=== PATIENT | male | born 1960 | race Caucasian/White ===

== ENCOUNTER 2018-04-01 13:48 | Emergency (ER) | payer SELFPAY ==
[~2018-04-01] VITALS: Ht 172.7 cm; Wt 113.4 kg
[~2018-04-01 13:48] MED LIST: ALLO300T PO; ASPI-612 PO; GABA800T2 PO; INSU300I SQ; LISI1TAB5 PO; METO-239 PO; SITA100T PO; lisinopril; toujeo
--- NOTE | 2018-04-01 14:19 | PHYS DOC ---
Past History Past Medical History: Alcoholism, Diabetes, Hypertension, Hypotension, Lung Disease, Other Past Surgical History: Other Smoking: Cigarettes, Quit Greater Than 1 Year Alcohol Use: None Drug Use: None Adult General Chief Complaint Chief Complaint: MECHANICAL FALL HPI HPI 57-year-old male with a history of alcoholism presents after he fell down a couple of steps injuring his left lower leg. He was ambulatory at scene. He states he's just scraped his leg on the concrete. He denies hitting his head or losing consciousness. He states that there are no other injuries.[] Review of Systems Review of Systems Constitutional: Denies fever or chills [] Eyes: Denies change in visual acuity, redness, or eye pain [] HENT: Denies nasal congestion or sore throat [] Respiratory: Denies cough or shortness of breath [] Cardiovascular: No additional information not addressed in HPI [] GI: Denies abdominal pain, nausea, vomiting, bloody stools or diarrhea [] : Denies dysuria or hematuria [] Musculoskeletal: Denies back pain or joint pain [] Integument: Per history of present illness[] Neurologic: Denies headache, focal weakness or sensory changes [] Endocrine: Denies polyuria or polydipsia [] All other systems were reviewed and found to be within normal limits, except as documented in this note. Current Medications Current Medications Current Medications Medications (Trade) Dose Ordered Sig/Vijay Start Time Stop Time Status Last Admin Dose Admin Tetanus/ Diphtheria Toxoids Adsorbed (Tenivac Vial) 0.5 ml ONCE ONCE 04/01/18 14:15 04/01/18 14:16 UNV Allergies Allergies Allergies Coded Allergies Type Severity Reaction Last Updated Verified No Known Drug Allergies 01/15/16 No Physical Exam Physical Exam Constitutional: Well developed, well nourished, no acute distress, non-toxic appearance. [] HENT: Normocephalic, atraumatic, bilateral external ears normal, oropharynx moist, no oral exudates, nose normal. [] Eyes: PERRLA, EOMI, conjunctiva normal, no discharge. [] Neck: Normal range of motion, no tenderness, supple, no stridor. [] Cardiovascular:Heart rate regular rhythm, no murmur [] Lungs & Thorax: Bilateral breath sounds clear to auscultation [] Abdomen: Bowel sounds normal, soft, no tenderness, no masses, no pulsatile masses. [] Skin: Large abrasion left knee and howe. [] Back: No tenderness, no CVA tenderness. [] Extremities: Patient is able to his left leg is nontender to palpate[] Neurologic: Alert and oriented X 3, normal motor function, normal sensory function, no focal deficits noted noted an essential tremor. [] Psychologic: Affect normal, judgement normal, mood normal. [] EKG EKG [] Radiology/Procedures Radiology/Procedures [] Course & Med Decision Making Course & Med Decision Making Pertinent Labs and Imaging studies reviewed. (See chart for details) [] Dragon Disclaimer Dragon Disclaimer This electronic medical record was generated, in whole or in part, using a voice recognition dictation system. Departure Departure: Impression: Primary Impression: Abrasion of left leg Disposition: 01 HOME, SELF-CARE Condition: STABLE Referrals: VICTOR MANUEL LANGFORD MD (PCP) Patient Instructions: Abrasions Additional Instructions: Return to the emergency department with any new or concerning symptoms. Please keep your wound clean and dry Problem Qualifiers Primary Impression: Abrasion of left leg Encounter type: initial encounter Qualified Codes: S80.812A - Abrasion, left lower leg, initial encounter FAINA PETERS DO Apr 01, 2018 14:19
[2018-04-01 14:40] VITALS: BP 133/93
[2018-04-01] MEDS ORDERED: TETANUS AND DIPHTHERIA TOX/PF 0.5 ML VIAL. VAX IM ONE (14:45)
== END 2018-04-01 14:45 | disposition home or self-care (01) ==
LOC: ER 13:48
DX: S80.212A Abrasion, left knee, initial encounter (principal); S80.812A Abrasion, left lower leg, initial encounter; E11.9 Type 2 diabetes mellitus without complications; I10 Essential (primary) hypertension; F10.20 Alcohol dependence, uncomplicated; Z87.891 Personal history of nicotine dependence; Y90.9 Presence of alcohol in blood, level not specified; W10.8XXA Fall (on) (from) other stairs and steps, initial encounter; Y93.89 Activity, other specified; Y92.89 Other specified places as the place of occurrence of the external cause; Y99.8 Other external cause status
CPT/HCPCS: 90471; 90714; 99283-25

== ENCOUNTER 2020-10-10 20:58 | Emergency (ER) | payer SELFPAY ==
[~2020-10-10] VITALS: Ht 175.3 cm; Wt 108.6 kg
[~2020-10-10 20:58] MED LIST changes: -ASPI-612 PO; +ASPI-889 PO; -GABA800T2 PO; +GABA800T5 PO; +LISI1TAB37 PO; -LISI1TAB5 PO
--- NOTE | 2020-10-10 21:04 | PHYS DOC ---
Past History Past Medical History: Alcoholism, Anxiety, COPD, Diabetes, High Cholesterol, Hypertension, Hypothyroid, Hypotension, Lung Disease, Other Past Surgical History: No Surgical History Smoking: Cigarettes, Quit Greater Than 1 Year Alcohol Use: Occasionally Drug Use: None Adult General HPI HPI Patient is a 59-year-old male who presents via EMS for a fall. Fall was 6 days ago. Reports falling forward onto outstretched bilateral hands and then landing on his left hip. States he has been at home and taking previously prescribed gabapentin and ibuprofen for pain but that is not helped alleviate his symptoms. Reports focal tenderness to midline spinous process approximately L3 area. Reports it is difficult walking with pain radiating down his left foot. No recent illnesses, no changes in medication, no fever greater than 100.4, denies any illicit drug use or chronic immunosuppression with steroid use Review of Systems Review of Systems Fourteen body systems of review of systems have been reviewed. See HPI for pertinent positives and negative responses, other saldaña all other systems are negative, non-pertinent or non-contributory Allergies Allergies Allergies Coded Allergies Type Severity Reaction Last Updated Verified No Known Drug Allergies 01/15/16 No Physical Exam Physical Exam Constitutional: Well developed, well nourished, no acute distress, non-toxic appearance. HENT: Normocephalic, atraumatic, bilateral external ears normal, oropharynx dry with poor dentition, no oral exudates, nose normal. Smacking lips Eyes: PERRLA, EOMI, conjunctiva normal, no discharge. Neck: Normal range of motion, no tenderness, supple, no stridor. Cardiovascular: Heart rate regular, sinus rhythm, no murmurs rubs or gallops Lungs & Thorax: Bilateral breath sounds clear to auscultation Abdomen: Bowel sounds normal, soft, no tenderness, no masses, no pulsatile masses. Nonsurgical abdomen, no peritoneal signs. No bladder or bowel incontinence Skin: Warm, dry, no erythema, no rash. Patient has ecchymosis in numerous parts of body mostly on extremities and x1 area over the left flank in various stages of recovery Back: No CVA tenderness but does have bruising present to left flank. Patient has point tenderness over L3 spinous process. Negative straight leg raise bilaterally.. Extremities: No tenderness, no cyanosis, no clubbing, ROM intact, no edema. Negative [place] ankle and foot rules to left lower extremity Neurologic: Alert and oriented X 3, bilateral lower extremity patellar and Achilles reflex symmetric 2+, negative Babinski bilaterally, no saddle anesthesia normal motor & sensory function, no focal deficits noted. Psychologic: Odd affect, judgement normal, nonrhythmic generalized body movements concerning for active methamphetamine use Current Patient Data Vital Signs Vital Signs Date Time Temp Pulse Resp B/P (MAP) Pulse Ox O2 Delivery O2 Flow Rate FiO2 10/10/20 21:00 100.2 99 24 131/79 (96) 97 Room Air EKG EKG [] Radiology/Procedures Radiology/Procedures PROCEDURE: PELVIS Exam: Pelvis 1 view INDICATION: Left hip pain TECHNIQUE: Frontal view of the pelvis Comparisons: None FINDINGS: Bone mineralization is normal. No acute or healed fractures. Soft tissues are unremarkable. Joint spaces are well-maintained. IMPRESSION: No acute osseous abnormality. Electronically signed by: Shar Mota MD (10/10/2020 10:33 PM) [facility] //////////////////////////////// PROCEDURE: CT LUMBAR SPINE WO CONTRAST Exam: CT of lumbar spine without contrast INDICATION: L2 tenderness TECHNIQUE: Sequential axial images through the lumbar spine obtained without IV contrast. Sagittal and coronal reformatted images were reconstructed from the axial data and reviewed. Comparisons: None FINDINGS: Vertebral body heights are well-maintained. Grade 1 retrolisthesis of L2 on L3 and L3 on L4. Fracture through the lumbar spine is not identified. Multilevel spondylotic change in the lumbar spine with degenerative disc disease diffusely present. There is a central disc protrusion at L2-L3 extends inferiorly on the right and likely compresses the descending right L3 nerve. Visualized paraspinal soft tissues are unremarkable. IMPRESSION: 1. Negative CT lumbar spine for acute traumatic injury. 2. Right paracentral disc protrusion at L2-L3 which extends inferiorly down the spinal canal likely compressing the descending right L3 nerve. Correlation with MRI of the lumbar spine is recommended. Heart Score C/O Chest Pain: No Risk Factors: Risk Factors: DM, Current or recent (<one month) smoker, HTN, HLP, family history of CAD, obesity. Risk Scores: Risk Factors: DM, Current or recent (<one month) smoker, HTN, HLP, family hist ory of CAD, obesity. Course & Med Decision Making Course & Med Decision Making Hemodynamically stable patient with history concerning for back pain status post fall 6 days ago. He does have a low-grade fever, I suspect IV drug abuse given history of known illicit drug abuse and fact that he appears under the influence currently. PE concerning for point tenderness over L3 spinous process and focal tenderness over left hip without any visual or palpable abnormalities. Radiograph of pelvis and subsequent CT imaging of lumbar area given red flags for back pain were nonconcerning Advised continued supportive care practices such as stretching and Tylenol for pain as needed and close outpatient follow-up. Supportive care and exercises advised. Strict return precautions were discussed with good understanding by patient, all questions and concerns addressed prior to ER departure At time of discharge when [facility] was called for patient, he reports that he could not walk. Patient was reexamined. Patient reported pain to sole of heel without any other abnormalities found, I reiterated there is no need for further ER diagnostic work-up Patient was ambulatory and after extensive conversation, ambulated from ER outside to [facility] where he left Dragon Disclaimer Dragon Disclaimer This electronic medical record was generated, in whole or in part, using a voice recognition dictation system. Departure Departure: Impression: Primary Impression: Low back pain Additional Impressions: Left hip pain History of recent fall Disposition: 01 DC HOME SELF CARE/HOMELESS Condition: STABLE Referrals: VICTOR MANUEL LANGFORD MD (PCP) Patient Instructions: Back Exercises, Back Pain, Adult Additional Instructions: You were evaluated in the Emergency Department today for back pain. Your evaluation suggests no acute abnormalities which require further intervention at this time. Your pain is most likely due to to a musculoskeletal cause that should improve with supportive care. I reviewed your imaging findings today. Please call your primary care physician to follow-up on this in outpatient setting. As discussed, if symptoms continue an MRI of the back is recommended - Move around as tolerated but avoiding heavy lifting. ``Bed rest is not recommended nor is it the best treatment for low back pain. - Medications will help control your discomfort: - -Ibuprofen (800 mg every 8 hours for pain) with food. - -Tylenol - Do not drink alcohol, drive a car, operate machinery, or get up on ladders or heights when taking any prescribed pain medications. - Do not drive home if you received prescribed pain medications here in the ED. Return to the ED immediately if you develop any of the following problems: - Leaking urine or difficulty urinating; - Inability to control your bowels; - New numbness or weakness in your legs or numbness between your legs; - Inability to walk - Fever Problem Qualifiers GIA ALMANZAR DO Oct 10, 2020 21:04
[2020-10-10] MEDS ORDERED: ACETAMINOPHEN 325 MG TABLET PO ONE (21:30)
--- NOTE | 2020-10-10 22:28 | RAD ---
Exam: CT of lumbar spine without contrast INDICATION: L2 tenderness TECHNIQUE: Sequential axial images through the lumbar spine obtained without IV contrast. Sagittal an d coronal reformatted images were reconstructed from the axial data and reviewed. Comparisons: None FINDINGS: Vertebral body heights are well-maintained. Grade 1 retrolisthesis of L2 on L3 and L3 on L4. Fracture through the lumbar spine is not identified. Multilevel spondylotic change in the lumbar spine with degenerative disc disease diffusely present. There is a central disc protrusion at L2-L3 extends inferiorly on the right and likely compresses the descending right L3 nerve. Visualized paraspinal soft tissues are unremarkable. IMPRESSION: 1. Negative CT lumbar spine for acute traumatic injury. 2. Right paracentral disc protrusion at L2-L3 which extends inferiorly down the spinal canal likely compressing the descending right L3 nerve. Correlation with MRI of the lumbar spine is recommended. Exposure: One or more of the following in the visualized dose reduction techniques were utilized for this examination: 1. Automated exposure control 2. Adjustment of the MA and/or KV according to patient size 3. Use of iterative of reconstructive technique Electronically signed by: Shar Mota MD (10/10/2020 10:26 PM) [facility]
--- NOTE | 2020-10-10 22:36 | RAD ---
Exam: Pelvis 1 view INDICATION: Left hip pain TECHNIQUE: Frontal view of the pelvis Comparisons: None FINDINGS: Bone mineralization is normal. No acute or healed fractures. Soft tissues are unremarkable. Joint spa brian are well-maintained. IMPRESSION: No acute osseous abnormality. Electronically signed by: Shar Mota MD (10/10/2020 10:33 PM) [facility]
[2020-10-11 00:30] VITALS: BP 124/79
== END 2020-10-11 00:50 | disposition home or self-care (01) ==
LOC: ER 20:58
DX: G89.11 Acute pain due to trauma (principal); M54.5 Low back pain; M25.552 Pain in left hip; F41.9 Anxiety disorder, unspecified; J44.9 Chronic obstructive pulmonary disease, unspecified; E11.9 Type 2 diabetes mellitus without complications; E78.00 Pure hypercholesterolemia, unspecified; I10 Essential (primary) hypertension; I95.9 Hypotension, unspecified; E03.9 Hypothyroidism, unspecified; F17.210 Nicotine dependence, cigarettes, uncomplicated; J98.4 Other disorders of lung; W18.39XA Other fall on same level, initial encounter; Y93.89 Activity, other specified; Y92.89 Other specified places as the place of occurrence of the external cause; Y99.8 Other external cause status
CPT/HCPCS: 72131; 72170; 99284

== ENCOUNTER 2020-10-21 14:14 | Inpatient (IN) | payer MEDICARE, OTHER ==
[~2020-10-21] VITALS: Ht 172.7 cm; Wt 105.7 kg
--- NOTE | 2020-10-21 14:38 | PHYS DOC ---
Past History Past Medical History: COPD, Diabetes, Hypertension, Other Additional Past Medical Histor: GOUT, NEUROPATHY Past Surgical History: No Surgical History Smoking: Cigarettes, Quit Greater Than 1 Year Alcohol Use: None Drug Use: None General Adult HPI: HPI: 59-year-old male past medical history of hypertension, daily alcohol abuse, COPD and diabetes, presents the ED with complaints of difficulty walking described as "balance problems, for years." stating he went to [place] yesterday and drank some alcoholic beverages and fell afterwards when at home going down split stairs to his bedroom. Pt denies LOC, on no AC but states he fell forward and hit the top of his nose. Reports he did not call for ambulance then because he had difficulties getting to his bedroom and wasn't at home. was home today and told him he needed to come to the hospital after he fell again today (no LOC). Reports his last alcoholic beverage was at [employer] yesterday. I asked if pt has ever been on any thiamine medication or if pt has been told he needs to take a vitamin. Pt states "I take one a day over 50, every day." Pt drinks half a fifth daily "for years." Denies any h/o CVA, TIA. No associated saddle anesthesia, urinary or bowel retention or incontinence, midline back pain, chest pain, dyspnea, hemoptysis or syncope. Reports tetanus has been updated in past 10 years. Review of Systems: Review of Systems: Constitutional: Denies fever or chills Eyes: Denies change in visual acuity HENT: Denies nasal congestion or sore throat Respiratory: Denies cough or shortness of breath Cardiovascular: Denies chest pain or edema GI: Denies abdominal pain, nausea, vomiting, bloody stools or diarrhea : Denies dysuria or hematuria Musculoskeletal: Denies back pain or joint pain Integument: Denies rash or diaphoresis Neurologic: Denies headache, midline neck pain, focal weakness or sensory changes Endocrine: Denies polyuria or polydipsia Lymphatic: Denies swollen glands Psychiatric: Denies depression or anxiety Allergies: Allergies: Allergies Coded Allergies Type Severity Reaction Last Updated Verified No Known Drug Allergies 01/15/16 No Physical Exam: PE: Constitutional: Well developed, well nourished, no acute distress, non-toxic appearance. HENT: Normocephalic, atraumatic, no hematoma, scab over proximal nasal bridge, no septal hematoma, very dry mucous membranes no oral bleeding/loose teeth/trauma Eyes: PERRLA, EOMI, mucous sounds bilaterally, no discharge. Neck: Normal range of motion, supple, Nexus C-spine criteria are negative: T here is no post midline tenderness, the patient is not intoxicated, there is a normal level of alertness, there are no focal neurologic deficits and there are no distracting injuries Cardiovascular: S1/2 present, regular rhythm Lungs & Thorax: Speaking in full sentences, bilateral equal chest rise, no tachypnea or increased work of breathing Abdomen: soft, no tenderness, Skin: Warm, dry, no erythema, no rash. [] Back: No midline tenderness or step-offs, no CVA tenderness. [] Extremities: No tenderness, no cyanosis, no lower extremity edema, ataxia in all 4 extremities, hemosiderin deposition both legs Neurologic: Alert and oriented X 3, normal motor function, normal sensory function, no focal deficits noted. [] Psychologic: Affect normal, judgement normal, mood normal. [] Current Patient Data: Labs: Laboratory Tests Test 10/21/20 14:25 Glucose (Fingerstick) 134 mg/dL (70-99) H EKG: EKG: Sinus rhythm 87 bpm, no axis deviation, normal intervals, no T wave inversion, no ST elevations or ST depressions Radiology/Procedures: Radiology/Procedures: [] IMAGING REPORT Signed PATIENT: GINGER ALARCON ACCOUNT: [id number] : 1960 LOCATION: ER AGE: 59 SEX: M EXAM STATUS: REG ER ORD. PHYSICIAN: FRANCY JACOBSON DO REASON: fall PROCEDURE: PORTABLE CHEST 1V XR CHEST 1V History: Reason: fall / Spl. Instructions: / History: . Pain Comparison: August 21, 2016 Findings: Patchy left basilar opacity. No pleural effusion. No pneumothorax. Advanced right and moderate left glenohumeral DJD. Impression: 1. Patchy bibasilar opacity, may represent atelectasis or developing consolida tion. If persistent clinical concern, recommend follow-up. Electronically signed by: Pj Gant DO (10/21/2020 2:56 PM) [id number] DICTATED AND SIGNED BY: PJ GANT DO DATE: 10/21/20 1453 CC: FRANCY JACOBSON DO; VICTOR MANUEL LANGFORD MD ~MTH0 0 IMAGING REPORT Signed PATIENT: GINGER ALARCON ACCOUNT: [id number] : 1960 LOCATION: ER AGE: 59 SEX: M EXAM STATUS: REG ER ORD. PHYSICIAN: FRANCY JACOBSON DO REASON: fall with blunt head trauma PROCEDURE: CT HEAD AND CERVICAL SPINE WO CT brain without contrast, CT C-spine without contrast. HISTORY: Fall with blunt head trauma CT brain CT scan of the brain was done without contrast. Sinuses are clear. A skull fracture is not identified. There is no intracranial hemorrhage or subdural hematoma. There is no mass or shift of the midline. Ventricles are normal in size. IMPRESSION: 1. No intracranial hemorrhage or acute finding noted. End impression CT cervical spine Axial CT images were obtained through the cervical spine. Thyroid is homogeneous. There are degenerative changes in the cervical spine. There is motion artifact. There is degenerative disc disease with disc space narrowing at C5-6 and C6-7 and spurring. There is subtle lucency through C2 which is probably artifact from motion but a repeat study with an additional imaging through the upper cervical spine would be of benefit to exclude subtle fracture. Definitive fracture not identified. There is mild narrowing of the spinal canal, the canal measures 8 mm at C5-6 and 1 cm at C6-7. IMPRESSION: 1. Motion artifact limits the study. Additional images may be of benefit to exclude a subtle fracture. 2. Degenerative disc disease at C5-6 and C6-7. PQRS Compliance Statement: One or more of the following individualized dose reduction techniques were utilized for this examination: 1. Automated exposure control 2. Adjustment of the mA and/or kV according to patient size 3. Use of iterative reconstruction technique Electronically signed by: Alexander Hardin MD (10/21/2020 3:14 PM) [id number] DICTATED AND SIGNED BY: ALEXANDER HARDIN MD DATE: 10/21/20 1503 CC: FRANCY JACOBSON DO; VICTOR MANUEL LANGFORD MD ~MTH0 0 Heart Score: C/O Chest Pain: No Risk Factors: Risk Factors: DM, Current or recent (<one month) smoker, HTN, HLP, family history of CAD, obesity. Risk Scores: Score 0 - 3: 2.5% MACE over next 6 weeks - Discharge Home Score 4 - 6: 20.3% MACE over next 6 weeks - Admit for Clinical Observation Score 7 - 10: 72.7% MACE over next 6 weeks - Early Invasive Strategies Course & Med Decision Making: Course & Med Decision Making Pertinent Labs and Imaging studies reviewed. (See chart for details) COVID-19 CRITERIA: The patient was evaluated during the global COVID-19 pandemic, and that diagnosis was suspected/considered upon their initial presentation. Their evaluation, treatment and testing was consistent with current guidelines for patients who present with complaints or symptoms that may be related to COVID-19. Concern for sepsis 2/2 cap (covid pending) vs malignancy given leukomoid reacti on, in the setting of suspected thiamine deficiency with neuropathy, ataxia and weakness. Patient is a fall risk. Has no extremity tremors, hallucinations, nausea or vomiting or tongue fasciculations. Antibiotics and IV fluids including thiamine started in ED. Will admit for further medical management. Patient stable at time of admission and agrees with this plan. I have spoken with the patient and/or caregivers. I have explained the patient's condition, diagnosis and treatment plan based on the information available to me at this time. I have answered the patient's and/or caregivers questions and answered any concerns. The patient and/or caregivers have as good an understanding of the patient's diagnosis, condition and treatment plan as can be expected at this point. The patient has been stabilized within the capability of the emergency department. The patient will be transported for further care and management or will be moved to an observation or inpatient service. I have communicated with the staff or medical practitioner taking over this patient's care. Dragon Disclaimer: Dragon Disclaimer: This electronic medical record was generated, in whole or in part, using a voice recognition dictation system. Departure Departure: Impression: Primary Impression: Sepsis Additional Impressions: Pneumonia Person under investigation for COVID-19 Thiamine deficiency neuropathy Disposition: ADMITTED INPT THIS HOSP Admitting Physician: Mohinder Orantes Condition: STABLE Referrals: VICTOR MANUEL LANGFORD MD (PCP) FRANCY JACOBSON DO Oct 21, 2020 14:38
--- NOTE | 2020-10-21 14:51 | EKG ---
[address] [address] Test Date: 2020-10-21 Test Time: 14:38:14 Pat Name: GINGER ALARCON Department: Room: Gender: M [employer] Operator: : 1960 Requested By: FRANCY JACOBSON Order Number: [id number] Reading MD: Measurements Intervals [place] Rate: 87 P: -67 OK: 142 QRS: 49 QRSD: 86 T: 60 QT: 364 QTc: 444 Interpretive Statements SINUS RHYTHM LOW LIMB LEAD VOLTAGE NO SPECIFIC ECG ABNORMALITIES RI6.02 No previous ECG available for comparison
--- NOTE | 2020-10-21 14:58 | RAD ---
XR CHEST 1V History: Reason: fall / Spl. Instructions: / History: . Pain Comparison: August 21, 2016 Findings: Patchy left basilar opacity. No pleural effusion. No pneumothorax. Advanced right and moderate left g lenohumeral DJD. Impression: 1. Patchy bibasilar opacity, may represent atelectasis or developing consolidation. If persistent cl inical concern, recommend follow-up. Electronically signed by: Pj Gant DO (10/21/2020 2:56 PM) [id number]
[2020-10-21] MEDS ORDERED: THIAMINE INJ 100 MG in IV NORMAL SALINE 50ML 50 ML IV ONE (15:00)
[2020-10-21] MEDS ORDERED: MVI, ADULT NO.4 WITH VIT K 10 ML, FOLIC ACID INJ 1 MG, THIAMINE INJ 100 MG in IV NORMAL... IV ONE (15:00)
[2020-10-21 15:08] LABS: BASO # 0.1 x10^3/uL (0.0-0.2); BASO % 0 % (0-3); CALCIUM 8.7 mg/dL (8.5-10.1); CREATININE 2.9 mg/dL (0.7-1.3); EOS % 0 % (0-3); GFR 22.3; HEMATOCRIT 39.3 % (39.0-53.0); HEMOGLOBIN 12.7 g/dL (13.0-17.5); LYMPH # 0.9 x10^3/uL (1.0-4.8); LYMPH % 3 % (24-48); MEAN CORPUSCULAR HEMOGLOBIN 33 pg (25-35); MEAN CORPUSCULAR HGB CONC 32 g/dL (31-37); MEAN CORPUSCULAR VOLUME 101 fL (79-100); MONO # 0.8 x10^3/uL (0.0-1.1); MONO % 2 % (0-9); NEUT # 34.6 x10^3uL (1.8-7.7); NEUT % 95 % (31-73); PLATELET COUNT 218 x10^3/uL (140-400); POTASSIUM 4.9 mmol/L (3.5-5.1); RED CELL DISTRIBUTION WIDTH 13.8 % (11.5-14.5); WHITE BLOOD COUNT 36.4 x10^3/uL (4.0-11.0)
[2020-10-21] MEDS ORDERED: AZITHROMYCIN 500 MG in IV NORMAL SALINE 250ML 250 ML IV ONE (15:15)
--- NOTE | 2020-10-21 15:17 | RAD ---
CT brain without contrast, CT C-spine without contrast. HISTORY: Fall with blunt head trauma CT brain CT scan of the brain was done without contrast. Sinuses are clear. A skull fracture is not identified . There is no intracranial hemorrhage or subdural hematoma. There is no mass or shift of the midline. Ventricles are normal in size. IMPRESSION: 1. No intracranial hemorrhage or acute finding noted. End impression CT cervical spine Axial CT images were obtained through the cervical spine. Thyroid is homogeneous. There are degenerat royce changes in the cervical spine. There is motion artifact. There is degenerative disc disease with disc space narrowing at C5-6 and C6-7 and spurring. There is subtle lucency through C2 which is proba lucian artifact from motion but a repeat study with an additional imaging through the upper cervical spi ne would be of benefit to exclude subtle fracture. Definitive fracture not identified. There is mild narrowing of the spinal canal, the canal measures 8 mm at C5-6 and 1 cm at C6-7. IMPRESSION: 1. Motion artifact limits the study. Additional images may be of benefit to exclude a subtle fracture . 2. Degenerative disc disease at C5-6 and C6-7. PQRS Compliance Statement: One or more of the following individualized dose reduction techniques were utilized for this examinat ion: 1. Automated exposure control 2. Adjustment of the mA and/or kV according to patient size 3. Use of iterative reconstruction technique Electronically signed by: Alexander Hardin MD (10/21/2020 3:14 PM) [id number]
[2020-10-21 15:21] LABS: ALBUMIN 2.8 g/dL (3.4-5.0); ALBUMIN/GLOBULIN RATIO 0.8 (1.0-1.7); MAGNESIUM 1.5 mg/dL (1.8-2.4); TOTAL BILIRUBIN 0.6 mg/dL (0.2-1.0); TOTAL PROTEIN 6.2 g/dL (6.4-8.2)
[2020-10-21] MEDS ORDERED: IV NORMAL SALINE 1,000ML 1,000 ML IV ONE ×4 (15:30→23:30)
[2020-10-21] MEDS ORDERED: IV NORMAL SALINE 250ML 250 ML ONE (15:34)
[2020-10-21] MEDS ORDERED: cefTRIAXone SODIUM 1 GM VIAL ONE (15:34)
[2020-10-21] MEDS ORDERED: AZITHROMYCIN 500 MG VIAL. IV ONE (15:34)
[2020-10-21] MEDS ORDERED: IV NORMAL SALINE 50ML 50 ML ONE (15:34)
[2020-10-21] MEDS ORDERED: MAGNESIUM SULFATE 2GM 50 ML IV ONE (15:45)
[2020-10-21 19:11] LABS: BARBITURATES NEG (NEG); BENZODIAZEPINES NEG (NEG); CANNABINOIDS NEG (NEG); COCAINE NEG (NEG); METHADONE NEG (NEG); OPIATES NEG (NEG); PHENCYCLIDINE NEG (NEG)
[2020-10-21 19:12] LABS: AMPHETAMINE/METHAMPHETAMINE NEG (NEG)
[2020-10-21 19:14] LABS: BACTERIA,URINE MANY /HPF (0-FEW); BILIRUBIN,URINE NEG (NEG); CLARITY,URINE TURBID; COLOR,URINE AMBER; GLUCOSE,URINE NEG (NEG); NITRITE,URINE NEG (NEG); RBC,URINE OCC /HPF (0-2); SQUAMOUS EPITHELIAL CELL,UR FEW /LPF; UROBILINOGEN,URINE 0.2 mg/dL (0.2 mg/dL); WBC,URINE 20-40 /HPF (0-4)
[2020-10-21 19:15] LABS: AMORPHOUS SEDIMENT,UR PRESENT /HPF
--- NOTE | 2020-10-21 19:54 | NUR ---
The patient, GINGER ALARCON, 59 y/o, M admitted by JAGRUTI BRUNO MD, was given written information regarding hospital policies, unit procedures and contact persons. Valuables were checked and logged. Call light in place. Will continue to monitor.
[2020-10-21 20:00] LABS: % BANDS 17 % (0-9); % LYMPHS 2 % (24-48); % MONOS 1 % (0-10); % SEGS 80 % (35-66)
[2020-10-21 20:01] LABS: PLT ESTIMATE ADEQUATE (ADEQUATE); TOXIC GRANULATION SLIGHT
[2020-10-21 20:42] VITALS: BP 74/55
[2020-10-21 23:10] VITALS: BP 75/55
[2020-10-22] MEDS: IV NORMAL SALINE 1,000ML 1,000 ML IV SCH ×3 (00:30→20:18)
[2020-10-22] MEDS ORDERED: UMEC1DIS IH (00:56)
[2020-10-22] MEDS ORDERED: TEMA15CA PO (00:56)
[2020-10-22] MEDS ORDERED: PREG100C PO (00:56)
[2020-10-22] MEDS ORDERED: DESV50TA PO (00:56)
[2020-10-22] MEDS ORDERED: GABA-587 PO (00:56)
[2020-10-22] MEDS ORDERED: LEVO75TA5 PO (00:56)
[2020-10-22] MEDS ORDERED: INSU100I13 SQ (00:56)
[2020-10-22] MEDS ORDERED: ATOR20TA58 PO (00:56)
[2020-10-22] MEDS ORDERED: AMIT150T PO (00:56)
--- NOTE | 2020-10-22 01:34 | NUR ---
CALLED DR TO CONTINUE MEDICATIONS THIS EVENING. DR CONTINUED LEVOTHYROXINE ONLY FOR PTS. ORDERS RECEIVED FOR 1000ML BOLUS NS ALSO 1000 NS LD973ID/HR AFTER THE BOLUS. PTS HAS BEEN HYPOTENSIVE SENSE ADMISSION.
--- NOTE | 2020-10-22 01:36 | NUR ---
PTS BP AFTER BOLUS 131/60
[2020-10-22 05:42] VITALS: BP 112/64
[2020-10-22] MEDS ORDERED: LEVOTHYROXINE 75 MCG TABLET PO SCH (07:30)
[2020-10-22 07:52] VITALS: BP 107/63
--- NOTE | 2020-10-22 08:45 | HP ---
ADMIT DATE: 10/21/2020 ATTENDING PHYSICIAN: Dr. Bruno. CHIEF COMPLAINT: Inability to walk. HISTORY OF PRESENT ILLNESS: The patient is a 59-year-old gentleman who drinks every day. He is clearly an alcoholic. He could not walk. He had fallen at home, fell down the stairs, no apparent bony injuries. He has significant neuropathy. The was home and told him he needed to come to the hospital after he fell again. He is dehydrated. Creatinine is 2.9 mg/dL. Clinically, he is nonambulatory, very weak. He has some tremulousness. Last drink was the day before. 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 PAST MEDICAL HISTORY: Significant for COPD, diabetes type 2, hypertension, and gout. He also has significant neuropathy due to a combination of mainly alcohol and probably diabetic too. ALLERGIES: He has no known drug allergies. CURRENT MEDICATIONS: Reviewed. He was taking Neurontin 400 mg p.o. t.i.d., amitriptyline 150 mg at bedtime, aspirin, Lipitor, Pristiq, Neurontin, insulin regular and Lantus, Synthroid, lisinopril, hydrochlorothiazide, metoprolol, Lyrica, Januvia, temazepam at bedtime and Breo Ellipta. FAMILY HISTORY: Mom of complications of lung cancer at age 54. Father of kidney failure at age 71, compliance is an issue. SOCIAL HISTORY: He quit smoking a year ago. He continues to drink regularly. The patient is disabled due to COPD. REVIEW OF SYSTEMS: Significant for the frequent falls, neuropathy. He was able to get out [employer] for their happy hour. He drinks whiskey on a regular basis. His liquor of choice is [employer], he drinks approximately fifth a day. He denied any previous history of seizures. There is a history of methamphetamine abuse, vasovagal sympathy, thiamine deficiency. All other systems reviewed and turned to be negative. PHYSICAL EXAMINATION: GENERAL: When I saw him, he was pretty sober. He was alert and gave a succinct history. His memory was actually quite good. VITAL SIGNS: Initial vital signs by the time I saw him, blood pressure is improved to 107/63, pulse is 92 and regular, temperature 98.8 degrees Fahrenheit, oxygen saturation 93% on room air. HEENT: Head is without trauma. Pupils are reactive. Sclerae nonicteric. Oropharynx clear. NECK: Supple, no bruits identified. LUNGS: Good breath sounds, minimal wheezing. CARDIOVASCULAR: Showed regular heart tones. No gallops. ABDOMEN: Soft, obese, protuberant. No organomegaly. Bowel sounds are hypoactive. EXTREMITIES: Showed trace edema. NEUROLOGIC: Fairly intact. Speech is fluent. He is nonambulatory at this time. SKIN: Warm and dry. PERTINENT LABORATORY AND X-RAY STUDIES: The obligatory CT of the head showed no acute strokes or bleeds. Initial hemoglobin was 12.7 g/dL, white count 36,400, creatinine is 2.9 mg percent, BUN 29, potassium 4.9 mEq. Nonfasting blood sugar 132. Cardiac enzymes negative. BNP is 1200. Transaminases were quite normal. Chest x-ray showed patchy bibasilar opacity representing atelectasis. He did not appear toxic or infected. He was afebrile. ASSESSMENT: 1. A 59-year-old gentleman with inability to walk, balance issues. He has significant alcoholic neuropathy. 2. Chronic alcoholism, ongoing. He drinks daily. 3. Chronic obstructive pulmonary disease. 4. Disability. 5. Dehydration. 6. Chronic kidney disease, stage 5. 7. Type 2 diabetes. PLAN: 1. Admit to the inpatient unit. 2. IV hydration. 3. Serial CBCs and chemistry panel. 4. I believe the elevation of white count is a leukemoid reaction. He does not appear septic at this time. 5. Physical therapy consultation. 6. Home meds, some were restarted. 7. We will monitor for signs of alcohol withdrawal. JAGRUTI BRUNO MD DR: SELVIN/andrew JOB#: [id number] / [id number] VICTOR MANUEL Piedra MD
[2020-10-22] MEDS: GABAPENTIN 400 MG CAPSULE. PO SCH ×3 (09:02→20:18)
[2020-10-22 10:13] LABS: CALCIUM 7.9 mg/dL (8.5-10.1); GFR 21.5; POTASSIUM 4.9 mmol/L (3.5-5.1)
[2020-10-22 10:14] LABS: BASO # 0.1 x10^3/uL (0.0-0.2); BASO % 0 % (0-3); EOS # 0.1 x10^3/uL (0.0-0.7); EOS % 0 % (0-3); HEMATOCRIT 36.3 % (39.0-53.0); HEMOGLOBIN 11.5 g/dL (13.0-17.5); LYMPH # 0.8 x10^3/uL (1.0-4.8); LYMPH % 3 % (24-48); MEAN CORPUSCULAR HEMOGLOBIN 33 pg (25-35); MEAN CORPUSCULAR HGB CONC 32 g/dL (31-37); MEAN CORPUSCULAR VOLUME 103 fL (79-100); MONO # 0.5 x10^3/uL (0.0-1.1); MONO % 2 % (0-9); NEUT # 22.7 x10^3uL (1.8-7.7); NEUT % 94 % (31-73); PLATELET COUNT 110 x10^3/uL (140-400); RED BLOOD COUNT 3.51 x10^6/uL (4.30-5.70); RED CELL DISTRIBUTION WIDTH 14.3 % (11.5-14.5); WHITE BLOOD COUNT 24.1 x10^3/uL (4.0-11.0)
[2020-10-22 11:57] VITALS: BP 134/78
[2020-10-22 15:03] VITALS: BP 119/72
--- NOTE | 2020-10-22 17:10 | NUR ---
SHIFT NOTE Pt up to chair a couple times today. This RN educated on frequent movement and cough/deep breathe exercises due to pts slight wheeze. Order for incentive spirometry and pt educated on use. Will continue to monitor. CC, RN
[2020-10-22 20:12] VITALS: BP 92/67
--- NOTE | 2020-10-22 21:08 | NUR ---
Nursing note: Spoke to MD regarding CIWA scores and medications, no new orders at this time d/t soft BP. Bed padded, pt on tele, will continue to monitor.
[2020-10-23 00:03] VITALS: BP 134/61
[2020-10-23] MEDS: ACETAMINOPHEN 500 MG TABLET PO PRN ×2 (00:21→18:38)
--- NOTE | 2020-10-23 01:36 | NUR ---
Nursing note: On reassessment of pt vitals, pt febrile 102.0. Contacted , who ordered tylenol, Rocephin IV.
[2020-10-23] MEDS: LEVOTHYROXINE 75 MCG TABLET PO SCH (05:35)
[2020-10-23] MEDS: IV NORMAL SALINE 1,000ML 1,000 ML IV SCH ×2 (05:35→06:11)
[2020-10-23 06:58] LABS: CALCIUM 7.7 mg/dL (8.5-10.1); CREATININE 2.7 mg/dL (0.7-1.3); GFR 24.2
[2020-10-23] MEDS: GABAPENTIN 400 MG CAPSULE. PO SCH ×3 (08:35→20:26)
[2020-10-23 10:50] VITALS: BP 119/69
[2020-10-23 14:59] VITALS: BP 130/61
[2020-10-23 19:20] VITALS: BP 108/70
--- NOTE | 2020-10-23 22:09 | PN ---
DATE: 10/23/2020 SUBJECTIVE: He is sober, alert. The tremulous condition is improved. He is quite sober. There is no impending DT. He wanted to go home. I recommend that he stay another day. Specifically, I asked him if he was going to continue to drink, he says he was drinking less, I suspect he will continue to drink as he wishes. I recommended rehab, he declined. OBJECTIVE FINDINGS: VITAL SIGNS: Temperature this morning spiked at 102.0 degrees Fahrenheit, pulse is 82 and regular, blood pressure improved to 134/61, oxygen saturation 92% on room air. HEENT: Head is without trauma. Pupils are reactive. Sclerae nonicteric. Oropharynx is clear. NECK: Supple. LUNGS: Actually clear. CARDIOVASCULAR: Showed regular heart tones. ABDOMEN: Soft. EXTREMITIES: Without edema. NEUROLOGIC: Focally intact. Speech is fluent. PERTINENT LABORATORY STUDIES: Repeat hemoglobin was 11.5 g/dL, white count came down to 24,100, one blood culture is growing gram-negative rods. ID and sensitivity are pending. He was started on empiric Rocephin. Creatinine today is down from 3.0-2.7 mg/dL. Electrolytes within normal range. Nonfasting blood sugar 91. He has one functioning kidney and his baseline creatinine is approximately 2.5 mg/dL. ASSESSMENT: 1. This 59-year-old gentleman is a chronic alcoholic. He has severe alcoholic neuropathy affecting his ability to ambulate. 2. Febrile illness without any localizing signs. One blood culture is positive whether this is significant or contaminant remains to be seen. He is on empiric antibiotics. 3. Chronic kidney disease stage V. 4. Dehydration. 5. Type 2 diabetes. 6. Chronic obstructive pulmonary disease. PLAN: 1. Continue IV hydration as ordered. 2. Serial chemistries. 3. Empiric Rocephin has been started. 4. I recommended physical therapy, he declined. 5. He wants to go home tomorrow, which may be reasonable pending results of blood culture. JAGRUTI BRUNO MD DR: SELVIN/andrew JOB#: [id number] / [id number]
[2020-10-23 22:20] VITALS: BP 122/72
[2020-10-24] MEDS: IV NORMAL SALINE 1,000ML 1,000 ML IV SCH (02:35)
--- NOTE | 2020-10-24 04:55 | NUR ---
Pt awake in bed at change of shift watching TV. Pt is A&Ox4, cooperative with assessment & cares. Pt ate HS snack in up in chair, unsteady gait noted with assisting from [id number]. Pt refused shower but gown and bedding changed. CIWA score monitored, lowering. Pt voids in urinal independently. Pt hopeful for DC home later today.
[2020-10-24] MEDS: ACETAMINOPHEN 500 MG TABLET PO PRN (05:39)
[2020-10-24] MEDS: LEVOTHYROXINE 75 MCG TABLET PO SCH (05:39)
[2020-10-24 05:45] VITALS: BP 116/73
[2020-10-24 06:57] LABS: CALCIUM 8.1 mg/dL (8.5-10.1); CREATININE 2.2 mg/dL (0.7-1.3); GFR 30.7; POTASSIUM 3.8 mmol/L (3.5-5.1)
[2020-10-24] MEDS: GABAPENTIN 400 MG CAPSULE. PO SCH (07:55)
--- NOTE | 2020-10-24 10:16 | NUR ---
DISCHARGE NOTE Pt discharged by Dr. Orantes today. Pt given discharge instructions and verbalized understanding of instructions. All questions addressed. Escorted out of hospital by UTILITIES ESTIMATOR AND DRAFTER in wheelchair and picked up by family member. VSS upon discharge from hospital. CC, RN
--- NOTE | 2020-10-24 11:30 | DS ---
DATE OF DISCHARGE: 10/24/2020 ATTENDING PHYSICIAN: Dr. Bruno. FINAL DISCHARGE DIAGNOSES: 1. Acute alcohol intoxication. 2. Alcohol withdrawal symptoms, improved. 3. Early delirium tremens, resolved. 4. Chronic obstructive pulmonary disease. 5. Chronic alcoholism. 6. Chronic kidney disease stage V. 7. Dehydration. 8. Type 2 diabetes. 9. Peripheral neuropathy. 10. Isolated febrile illness without any localizing signs of infection. HISTORY AND PHYSICAL: The patient is a 59-year-old gentleman, chronic alcoholic, who drinks to excess. He had profound weakness. He had fallen at home. His ex- brought him in for further treatment and evaluation. PHYSICAL EXAMINATION: Please see the dictated note. PERTINENT LABORATORY AND X-RAY STUDIES: Blood cultures are negative at 48 hours. One urine culture did come back positive, but only 40,000 colonies of E. coli. This is not clinically significant. His creatinine on admission was 2.9 mg/dL. With gentle hydration, it came down to 2.2 mg percent. He only has 1 functioning kidney and for him this serum creatinine level is about baseline. Electrolytes were within normal range. Coronavirus swab was negative. Hemoglobin is maintained at 12.7 mg/dL. He had a leukemoid reaction initially with white count of 36,400, repeated was down to 24,100. Once again, he had no localizing signs of infection. COURSE IN THE HOSPITAL: The patient was admitted. He was given IV hydration, serial chemistry showed improvement down to baseline creatinine of 2.2 mg/dL. His tremulous has improved and he did not require significant benzodiazepines. He still remains weak, but ambulatory. He is at high risk for falling. I offered rehabilitation. At the time of discharge, the patient declined. Strong encouragement for him to quit drinking altogether whether or not he will quit drinking remains to be seen. By the fourth hospital day, the patient's vital signs are stable. We had him on empiric Rocephin, but without any localizing signs. He did not require any oral antibiotics to go home. His temperature is 96.7 degrees Fahrenheit. On the day of discharge, blood pressure is stable at 122/72, oxygen saturation 93% on room air, pulse 84 and regular. Lungs were clear. Cardiovascular, regular heart tones. Tremulousness and agitation has improved. He was quite sober and he was feeling much better. Therefore, on the fourth hospital day, the patient was discharged home with no changes on his meds and his diabetic regimen. He shall continue his aspirin daily, Lipitor 20 mg daily, Pristiq ER 50 mg daily, Neurontin 400 mg t.i.d., insulin regular and Lantus, Synthroid 75 mcg daily, lisinopril/hydrochlorothiazide 20/12.5 daily, metoprolol 25 mg daily, Lyrica 100 mg daily, Januvia 100 mg daily, Restoril p.r.n. insomnia and Anoro Ellipta 1 puff daily. For now, we held his amitriptyline. The patient was then discharged from our hospital in stable condition with explicit instructions and followup care. He will follow up with his primary care physician, Dr. Henning as scheduled. Strong encouragement to avoid all alcohol altogether whether or not he will quit drinking remains to be seen. He was discharged in a stable condition with recommendations and instructions for followup care. TOTAL DISCHARGE TIME SPENT: 41 minutes. JAGRUTI BRUNO MD DR: SELVIN/andrew JOB#: [id number] / [id number] VICTOR MANUEL Piedra MD
[2020-10-24] MEDS ORDERED: LACTOBACILLUS RHAMNOSUS GG 1 CAPSULE. PO SCH (21:00)
--- NOTE | 2020-10-26 12:18 | NUR ---
IP note: Pt discharged to home before final blood culture results received. Pt is aware of new results, and requests that the lab information and antibiotics with which he was treated during his recent stay be faxed to Dr. Henning, for review prior to his upcoming appointment this Saturday, 10/28. Report and antibiotic administration record from [facility] faxed to Dr. Henning's office.
== END 2020-10-24 10:15 | disposition home or self-care (01) | DRG 641 ==
LOC: ER 14:14 → 1 SOUTH 18:16
PROVIDERS: ADMIT Hospitalist; ATTEND Hospitalist
DX: E86.0 Dehydration (principal); E51.9 Thiamine deficiency, unspecified; F10.231 Alcohol dependence with withdrawal delirium; I12.0 Hypertensive chronic kidney disease with stage 5 chronic kidney disease or end stage renal disease; J44.0 Chronic obstructive pulmonary disease with (acute) lower respiratory infection; N18.5 Chronic kidney disease, stage 5; E44.1 Mild protein-calorie malnutrition; E11.22 Type 2 diabetes mellitus with diabetic chronic kidney disease; E11.40 Type 2 diabetes mellitus with diabetic neuropathy, unspecified; F10.229 Alcohol dependence with intoxication, unspecified; G62.1 Alcoholic polyneuropathy; M47.812 Spondylosis without myelopathy or radiculopathy, cervical region; M48.02 Spinal stenosis, cervical region; M50.322 Other cervical disc degeneration at C5-C6 level; Z20.822 Contact with and (suspected) exposure to COVID-19; Z79.82 Long term (current) use of aspirin; Z79.84 Long term (current) use of oral hypoglycemic drugs; Z79.890 Hormone replacement therapy; Z79.899 Other long term (current) drug therapy; Z80.1 Family history of malignant neoplasm of trachea, bronchus and lung; Z87.891 Personal history of nicotine dependence; Z91.81 History of falling; M10.9 Gout, unspecified; W18.39XA Other fall on same level, initial encounter; Y93.89 Activity, other specified; Y92.89 Other specified places as the place of occurrence of the external cause; Y99.8 Other external cause status; B96.20 Unspecified Escherichia coli [E. coli] as the cause of diseases classified elsewhere; Z68.35 Body mass index [BMI] 35.0-35.9, adult
CPT/HCPCS: 36415; 70450; 71045; 72125; 80048; 80053; 80307; 81001; 82550; 82947; 83605; 83735; 83880; 84484; 85007; 85025; 85610; 85730; 87040; 87077; 87086; 87186; 87205; 93005; 96365; 96367; 96368; G0480; J0456; J0696; J3475; J7050; P9612; U0003; U0005; 99285-25; J7030